=== PATIENT | female | born 1985 | race American Indian/Alaskan Native ===

== ENCOUNTER 2016-02-18 09:34 | Emergency (ER) | payer SELFPAY ==
[2016-02-18 09:47] VITALS: BP 127/91
[2016-02-18] MEDS ORDERED: BICILLIN L-A IM ONE (12:52)
[2016-02-18] MEDS ORDERED: DECADRON IM ONE (12:53)
--- NOTE | 2016-02-18 13:09 | Emergency Department Report ---
ED ENT HPI - General Chief complaint: Sore Throat Stated complaint: THROAT SWELLING Time Seen by Provider: 02/18/16 12:00 Source: patient Mode of arrival: Ambulatory Limitations: No Limitations - History of Present Illness Initial comments: 30y/o female with sore throat x 1 day complaint: sore throat Onset/Timin -: days(s) Severity: mild Severity scale (0 -10): 3 Quality: aching Consistency: intermittent Improves with: none Worsens with: swallowing - Related Data Previous Rx's Medication Instructions Recorded Last Taken Type Lidocaine/Prilocaine [Emla Cream] 5 gm TP ONCE #1 cream..g. 07/08/13 Unknown Rx Ferrous Sulfate [Feosol 325 MG tab] 325 mg PO BID #60 tablet 07/10/13 Unknown Rx Ibuprofen [Motrin 600 MG tab] 800 mg PO Q6H PRN #30 tablet 07/10/13 Unknown Rx Ibuprofen [Motrin] 800 mg PO Q8HR PRN #15 tablet 02/18/16 Unknown Rx Allergies Allergy/AdvReac Type Severity Reaction Status Date / Time No Known Allergies Allergy Verified 07/08/13 06:21 ED Dental HPI - General Chief complaint: Sore Throat Stated complaint: THROAT SWELLING Time Seen by Provider: 02/18/16 12:00 Source: patient Mode of arrival: Ambulatory Limitations: No Limitations - Related Data Previous Rx's Medication Instructions Recorded Last Taken Type Lidocaine/Prilocaine [Emla Cream] 5 gm TP ONCE #1 cream..g. 07/08/13 Unknown Rx Ferrous Sulfate [Feosol 325 MG tab] 325 mg PO BID #60 tablet 07/10/13 Unknown Rx Ibuprofen [Motrin 600 MG tab] 800 mg PO Q6H PRN #30 tablet 07/10/13 Unknown Rx Ibuprofen [Motrin] 800 mg PO Q8HR PRN #15 tablet 02/18/16 Unknown Rx Allergies Allergy/AdvReac Type Severity Reaction Status Date / Time No Known Allergies Allergy Verified 07/08/13 06:21 ED Review of Systems ROS: Stated complaint: THROAT SWELLING Other details as noted in HPI Constitutional: denies: chills, fever Eyes: denies: eye pain, eye discharge, vision change ENT: throat pain. denies: ear pain Respiratory: denies: cough, shortness of breath, wheezing Cardiovascular: denies: chest pain, palpitations Endocrine: no symptoms reported Gastrointestinal: denies: abdominal pain, nausea, diarrhea Genitourinary: denies: urgency, dysuria, discharge Musculoskeletal: denies: back pain, joint swelling, arthralgia Skin: denies: rash, lesions Neurological: denies: headache, weakness, paresthesias Psychiatric: denies: anxiety, depression Hematological/Lymphatic: denies: easy bleeding, easy bruising ED Past Medical Hx - Past Medical History Previous Medical History?: Yes Hx Hypertension: No Hx Congestive Heart Failure: No Hx Diabetes: No Hx Deep Vein Thrombosis: No Hx Renal Disease: No Hx Sickle Cell Disease: No Hx Seizures: No Hx Asthma: No Hx COPD: No Hx HIV: No - Surgical History Past Surgical History?: No - Social History Smoking Status: Current Every Day Smoker Substance Use Type: Alcohol, Non Opiate Pain - Medications Home Medications: Home Medications Medication Instructions Recorded Confirmed Last Taken Type Lidocaine/Prilocaine [Emla Cream] 5 gm TP ONCE #1 cream..g. 07/08/13 Unknown Rx Ferrous Sulfate [Feosol 325 MG tab] 325 mg PO BID #60 tablet 07/10/13 Unknown Rx Ibuprofen [Motrin 600 MG tab] 800 mg PO Q6H PRN #30 tablet 07/10/13 Unknown Rx Ibuprofen [Motrin] 800 mg PO Q8HR PRN #15 tablet 02/18/16 Unknown Rx ED Physical Exam - General Limitations: No Limitations General appearance: alert, in no apparent distress - Head Head exam: Present: atraumatic, normocephalic - Eye Eye exam: Present: normal appearance, PERRL - ENT ENT exam: Present: mucous membranes moist - Expanded ENT Exam Expanded Ear exam: Present: normal external inspection Mouth exam: Present: normal external inspection Teeth exam: Present: normal inspection Throat exam: Positive: tonsillar erythema, tonsillomegaly, tonsillar exudate - Neck Neck exam: Present: normal inspection - Respiratory Respiratory exam: Present: normal lung sounds bilaterally. Absent: respiratory distress - Cardiovascular Cardiovascular Exam: Present: regular rate, normal rhythm. Absent: systolic murmur, diastolic murmur, rubs, gallop - GI/Abdominal GI/Abdominal exam: Present: soft, normal bowel sounds - Extremities Exam Extremities exam: Present: normal inspection - Back Exam Back exam: Present: normal inspection - Neurological Exam Neurological exam: Present: alert, oriented X3 - Psychiatric Psychiatric exam: Present: normal affect, normal mood - Skin Skin exam: Present: warm, dry, intact, normal color. Absent: rash ED Course Vital Signs 02/18/16 09:44 Temperature 97.9 F Pulse Rate 100 H Respiratory 22 Rate Blood Pressure 127/91 O2 Sat by Pulse 98 Oximetry ED Medical Decision Making - Medical Decision Making rapid strep A positive Critical care attestation.: If time is entered above; I have spent that time in minutes in the direct care of this critically ill patient, excluding procedure time. ED Disposition Clinical Impression: Strep pharyngitis Disposition: DISCHARGED TO HOME OR SELFCARE Is pt being admited?: No Does the pt Need Aspirin: No Condition: Stable Instructions: Strep Throat (ED) Prescriptions: Ibuprofen [Motrin] 800 mg PO Q8HR PRN #15 tablet PRN Reason: Pain Referrals: PRIMARY CARE,MD [Primary Care Provider] - 3-5 Days [facility] [Outside] - 3-5 Days Forms: Work/School Release Form(ED) Time of Disposition: 13:08
== END 2016-02-18 13:28 | disposition home or self-care (01) ==
LOC: ED 09:34
DX: J02.0 Streptococcal pharyngitis (principal); F17.200 Nicotine dependence, unspecified, uncomplicated
CPT/HCPCS: 87430; 96372; 99282; J0561; J1100

== ENCOUNTER 2016-05-31 08:47 | Emergency (ER) | payer SELFPAY ==
[2016-05-31] MEDS ORDERED: TORADOL IM ONE ×2 (09:11→12:27)
[2016-05-31] MEDS ORDERED: NORCO 5/325 PO ONE (09:11)
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
[2016-05-31 09:37] LABS: Basophils % (Auto) 0.6 % (0.0-1.8); Eosinophils % (Auto) 2.5 % (0.0-4.3); Hematocrit 37.7 % (30.3-42.9); Hemoglobin 12.6 gm/dl (10.1-14.3); Mean Corpuscular HGB Conc 34 % (30-34); Mean Corpuscular Hemoglobin 31 pg (28-32); Mean Corpuscular Volume 91 fl (79-97); Platelet Count 259 K/mm3 (140-440); Red Blood Count 4.14 M/mm3 (3.65-5.03)
[2016-05-31 09:52] LABS: Anion Gap 16 mmol/L; Blood Urea Nitrogen 9 mg/dL (7-17); Calcium 8.7 mg/dL (8.4-10.2); Carbon Dioxide 27 mmol/L (22-30); Chloride 102.6 mmol/L (98-107); Glucose 90 mg/dL (65-100); Potassium 4.1 mmol/L (3.6-5.0); Sodium 141 mmol/L (137-145)
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
[2016-05-31 13:45] VITALS: BP 109/63
== END 2016-05-31 12:30 | disposition home or self-care (01) ==
LOC: ED 08:47
DX: M79.601 Pain in right arm (principal); M79.604 Pain in right leg; M54.6 Pain in thoracic spine; F17.200 Nicotine dependence, unspecified, uncomplicated; V89.2XXA Person injured in unspecified motor-vehicle accident, traffic, initial encounter; Y93.89 Activity, other specified; Y99.9 Unspecified external cause status; Y92.410 Unspecified street and highway as the place of occurrence of the external cause
CPT/HCPCS: 36415; 71010; 72072; 72170; 73030; 73070; 73090; 73552; 73590; 80048; 84703; 85025; 96372; 99284; J1885

== ENCOUNTER 2020-06-22 07:18 | Emergency (ER) | payer SELFPAY ==
[2020-06-22 07:49] VITALS: BP 143/89
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
[2020-06-22 08:27] LABS: Bacteria,Urine 1+ /HPF (Negative); Bilirubin,Urine NEG (Negative); Blood,Urine LG (Negative); Color,Urine Red (Yellow); Mucus,Urine FEW /HPF; Urobilinogen,Urine < 2.0 mg/dL (<2.0)
[2020-06-22 08:43] LABS: Basophils % (Auto) 0.5 % (0.0-1.8); Eosinophils # (Auto) 0.1 K/mm3 (0.0-0.4); Eosinophils % (Auto) 1.5 % (0.0-4.3); Hemoglobin 12.6 gm/dl (10.1-14.3); Lymphocytes # (Auto) 1.9 K/mm3 (1.2-5.4); Lymphocytes % (Auto) 26.2 % (13.4-35.0); Mean Corpuscular HGB Conc 34 % (30-34); Mean Corpuscular Volume 89 fl (79-97); Monocytes # (Auto) 0.5 K/mm3 (0.0-0.8); Monocytes % (Auto) 6.3 % (0.0-7.3); Platelet Count 302 K/mm3 (140-440); Red Blood Count 4.14 M/mm3 (3.65-5.03); Red Cell Distribution Width 14.7 % (13.2-15.2)
[2020-06-22 09:12] LABS: Alanine Aminotransferase 13 units/L (7-56); Albumin 3.6 g/dL (3.9-5); Blood Urea Nitrogen 7 mg/dL (7-17); Calcium 8.5 mg/dL (8.4-10.2); Hemolysis Index 5
[2020-06-22 09:37] LABS: BUN/Creatinine Ratio 10
--- NOTE | 2020-06-22 10:09 | Ultrasound Report ---
ULTRASOUND OBSTETRIC REASON FOR EXAM: Abnl vag bleeding/ TECHNIQUE: Transabdominal ultrasound was performed to evaluate a first trimester . COMPARISON: None available. FINDINGS: The uterus measures 8.5 x 5.5 x 5.1 cm. No IUP is seen. 2 uterine fibroids are present. The right ovary demonstrates a normal sonographic appearance. The left ovary demonstrates a normal sonographic appearance. Cul-de-sac: There is no free fluid. IMPRESSION: of unknown location. No IUP is visualized. Findings could reflect an early intrauterine pre gnancy, occult ectopic , or recent spontaneous . In a hemodynamically stable patient , recommend follow-up with pelvic ultrasound in 7-10 days. Signer Name: Titus Flores MD Signed: 06/22/2020 10:05 AM Workstation Name: [id number]
== END 2020-06-22 10:34 | disposition home or self-care (01) ==
LOC: ED 07:18
DX: N93.9 Abnormal uterine and vaginal bleeding, unspecified (principal); Z79.899 Other long term (current) drug therapy
CPT/HCPCS: 36415; 76801; 80053; 81001; 83735; 84702; 84703; 85025; 86900; 86901; 87086